=== PATIENT | female | born 1940 | race Caucasian/White ===

== ENCOUNTER 2017-07-05 10:35 | Inpatient (IN) | payer MEDICARE, OTHER ==
[~2017-07-05] VITALS: Ht 154.9 cm; Wt 61.2 kg
[~2017-07-05 10:35] MED LIST: AZIT250T6 PO; CARB-93 PO; DONE5TAB34 PO; ESCI10TA PO; GABA-534 PO; LEVE500T20 PO; LEVO88TA5 PO; MEGE400O PO; MEMA10TA PO; MIDO2.5T PO; OMEP40CA37 PO; POTA10CA43 PO; RISE35TA8 PO; RISP0.5T20 PO; ROPI1TAB4 PO; SIMV40TA5 PO
[2017-07-05] MEDS ORDERED: IV NORMAL SALINE 1000 ML BAG IV ONE ×2 (11:00→12:30)
[2017-07-05 11:20] LABS: BASOPHILS # (AUTO) 0.4 K/uL (0.0-8.0); BASOPHILS % (AUTO) 2.7 % (0.0-2.0); EOSINOPHILS # (AUTO) 0.1 K/uL (0.0-0.7); EOSINOPHILS % (AUTO) 0.8 % (0.0-7.0); HEMATOCRIT 44.6 % (37-47); HEMOGLOBIN 14.2 G/DL (12.0-16.0); LYMPHOCYTES # (AUTO) 1.5 K/UL (0.8-4.8); LYMPHOCYTES % (AUTO) 11.5 % (20.5-51.5); MEAN CORPUSCULAR HEMOGLOBIN 31.4 UUG (27.0-31.0); MEAN CORPUSCULAR HGB CONC 32 g/dL (32.0-37.0); MEAN CORPUSCULAR VOLUME 98.5 FL (81.0-99.0); MONOCYTES # (AUTO) 0.7 K/UL (0.1-1.30); NEUTROPHILS # (AUTO) 10.4 K/UL (1.8-8.9); PLATELET COUNT (AUTO) 404 K/UL (150-450); RED BLOOD CELL COUNT(AUTO) 4.53 MIL/UL (4.2-5.4); WHITE BLOOD COUNT (AUTO) 13.1 K/UL (4.0-11.2)
[2017-07-05 11:41] LABS: CARBON DIOXIDE 25 mmol/L (21-32); CHLORIDE 107 mmol/L (98-107); CREATININE 0.8 mg/dL (0.6-1.3); GLUCOSE 156 mg/dL (74-106); POTASSIUM 4.5 mmol/L (3.5-5.1); UREA NITROGEN, BLOOD 11 mg/dL (7-18)
[2017-07-05] MEDS ORDERED: PIPERACILLIN SODIUM/TAZOBACTAM 3.375 G in IV DEXTROSE 5% 50 ML IV ONE (11:45)
[2017-07-05 11:46] LABS: ALANINE AMINOTRANSFERASE 21 U/L (14-59); ALKALINE PHOSPHATASE 64 U/L (50-136); ASPARTATE AMINOTRANSFERASE 28 U/L (15-37); BILIRUBIN,DIRECT 0.1 mg/dL (0.0-0.2); BILIRUBIN,TOTAL 0.2 mg/dL (0.2-1.0); TOTAL PROTEIN, SERUM 7.3 g/dL (6.4-8.2)
[2017-07-05] MEDS ORDERED: CHOL100045 PO (11:58)
[2017-07-05] MEDS ORDERED: MULT-1094 PO (11:58)
[2017-07-05] MEDS ORDERED: RANI150C4 PO (11:58)
[2017-07-05] MEDS ORDERED: ASCO500C16 PO (11:58)
[2017-07-05] MEDS ORDERED: PERM60CR4 TP (11:58)
[2017-07-05] MEDS ORDERED: TRIA15CR2 TP (11:58)
[2017-07-05] MEDS ORDERED: CARBIDOPA/LEVODOPA PO (11:58)
[2017-07-05] MEDS ORDERED: CALC-860 PO (11:58)
[2017-07-05] MEDS ORDERED: IBUP-1957 PO (11:58)
[2017-07-05] MEDS ORDERED: CYAN10006 PO (11:58)
[2017-07-05] MEDS ORDERED: PIPERACILLIN/TAZOBACTAM/D5W 50 ML IV ONE (12:04)
[2017-07-05] MEDS ORDERED: AZITHROMYCIN IV 500 MG in IV DEXTROSE 5% 250 ML IV ONE (12:30)
[2017-07-05] MEDS ORDERED: CEFTRIAXONE 1 G in IV DEXTROSE 5% 50 ML IV ONE (12:30)
[2017-07-05] MEDS ORDERED: AZITHROMYCIN 500 MG VIAL IV ONE (13:01)
[2017-07-05] MEDS ORDERED: CEFTRIAXONE 1 G VIAL ONE (13:01)
[2017-07-05 13:21] LABS: *BILIRUBIN,URIN NEGATIVE (NEGATIVE); *BLOOD, URINE Trace-intact (NEGATIVE); *CLARITY,URINE CLOUDY (CLEAR); *COLOR,URINE YELLOW (YELLOW); *KETONES,URINE NEGATIVE (NEGATIVE); *PROTEIN,URINE NEGATIVE (NEGATIVE); *UROBILINOGEN,URINE 0.2 E.U./dl (NORMAL); LEUKOCYTE ESTERASE ,URINE 1+ (NEGATIVE); NITRITE, URINE NEGATIVE (NEGATIVE); PH,URINE 5.5 (5.0-8.0); UGLUCOSE NEGATIVE (NEGATIVE)
[2017-07-05 13:30] LABS: BACTERIA,URINE MODERATE /HPF (NONE SEEN); SQUAMOUS EPITHELIAL CELL,UR MANY /HPF (NONE SEEN)
--- NOTE | 2017-07-05 13:52 | NUR ---
transfer to floor pending on perineal hygiene being provided. pt resistant to care which makes it very difficult to do intervention on her.
--- NOTE | 2017-07-05 14:01 | NUR ---
pt transfered to floor in stable condition.
--- NOTE | 2017-07-05 14:41 | NUR ---
77 YEAR OLD FEMALE ADMITTED TO ROOM 209 FOR SEPSIS VIA GURNEY .PT IS CONFUSED DEMENTED,V/S ARE STABLE. MD CALLED FOR THE ADMISSION ORDERS.
[2017-07-05 14:42] VITALS: BP 117/71
[2017-07-05] MEDS ORDERED: SIMVASTATIN 40 MG TABLET PO SCH ×2 (14:45→21:00)
[2017-07-05] MEDS ORDERED: IBUPROFEN 800 MG TABLET PO PRN (14:45)
[2017-07-05] MEDS ORDERED: ONDANSETRON 4 MG/2 ML VIAL IV PRN (14:45)
[2017-07-05] MEDS ORDERED: Z GUARD REMEDY PASTE 57 GM TUBE TOP PRN (14:45)
[2017-07-05] MEDS ORDERED: MIDODRINE HCL 2.5 MG TABLET PO PRN (14:45)
[2017-07-05] MEDS ORDERED: PIPERACILLIN SODIUM/TAZOBACTAM 4.5 G in IV DEXTROSE 5% 50 ML IV SCH (14:45)
[2017-07-05] MEDS ORDERED: ACETAMINOPHEN 325 MG TABLET PO PRN (14:45)
[2017-07-05 15:25] VITALS: BP 113/58
[2017-07-05] MEDS: IV NS 1000 ML 1,000 ML IV PRN (15:40)
[2017-07-05] MEDS: LEVETIRACETAM 500 MG TABLET PO SCH (16:28)
[2017-07-05] MEDS: CYANOCOBALAMIN 1000 MCG/ML VIAL IM SCH (16:28)
[2017-07-05] MEDS: ESCITALOPRAM OXALATE 10 MG TABLET PO SCH (16:29)
[2017-07-05] MEDS: GABAPENTIN 300 MG CAPSULE PO SCH (16:29)
[2017-07-05] MEDS: LEVOTHYROXINE SODIUM 88 MCG TABLET PO SCH (16:29)
[2017-07-05] MEDS: DONEPEZIL 5 MG TABLET PO SCH ×2 (16:29→17:00)
[2017-07-05] MEDS: ropiniROLE 1 MG TABLET PO SCH ×2 (16:29→17:00)
[2017-07-05] MEDS: CARBIDOPA/LEVODOPA 25-100MG TABLET PO SCH ×2 (16:29→17:00)
[2017-07-05] MEDS: CALCIUM CARB/VITAMIN D 600-400 MG TABLET PO SCH (16:29)
[2017-07-05] MEDS ORDERED: PIPERACILLIN/TAZOBACTAM/D5W 2.25 G in PREMIXED 1 EACH IV SCH (16:30)
--- NOTE | 2017-07-05 16:43 | NUR ---
ZOCOR 40 MG PO NOT GIVEN AT 1445 ,ZOCOR IS DUE HS
[2017-07-05] MEDS: MEMANTINE HCL 10 MG TABLET PO SCH (17:00)
[2017-07-05] MEDS: PIPERACILLIN/TAZOBACTAM/D5W 2.25 G in PREMIXED 1 EACH IV SCH (17:54)
--- NOTE | 2017-07-05 19:26 | NUR ---
PHARMACY CLINICAL NOTES(VANCOMYCIN DOSING) S: 77 YO female admitted for sepsis; MD ordered Vancomycin O: BUN/SCR 11/0.8; WBC 13.1, TEMP 99.4 ; dosing wt 135 lbas, ht 155 cm A/P: Will dose Vancomycin 1 gm IVPB q24h ; estimated peak of 38.2 and trough 15.94; will order trough prior to 4th dose (not ordered in [facility]) and will adjust the dose accordingly if necessary; will continue to monitor
--- NOTE | 2017-07-05 19:45 | NUR ---
RECEIVED PATIENT IN BED, AWAKE, NO SOB NO CHEST PAIN, NO COUGHING NO CONGESTION NOTED, RENDERED [facility] FOR BOWEL AND BLADDER INCONTINENT, AFEBRILE CONT TO MONITOR.
[2017-07-05] MEDS: VANCOMYCIN IV 1 G in PREMIXED 0 EACH IV SCH (19:54)
[2017-07-05 20:00] VITALS: BP 108/62
[2017-07-05] MEDS: risperiDONE 0.5 MG TABLET PO SCH (20:18)
[2017-07-05] MEDS: TRIAMCINOLONE ACET 0.5% CREAM 15 GM TUBE TP SCH (22:46)
[2017-07-06] VITALS (7 sets, daily range): BP systolic 91–108; BP diastolic 48–61
[2017-07-06] MEDS: PIPERACILLIN/TAZOBACTAM/D5W 2.25 G in PREMIXED 1 EACH IV SCH ×2 (00:12→05:17)
--- NOTE | 2017-07-06 00:15 | NUR ---
bp improved 115/69,temp wnl,patient asleep,no distress. Addendum: 07/07/17 at 0248 by MIKA GARBER RN wrong times entry/disregard.
--- NOTE | 2017-07-06 04:44 | NUR ---
PATIENT SLEPT MOST OF THE NIGHT, NO SOB NO CHEST PAIN NOTED, TURN AND REPOSITION , NO COMPLAIN OF PAIN, KEPT CLEAN AND DRY, CONT TO MONITOR.
--- NOTE | 2017-07-06 05:11 | NUR ---
PATIENT RHYTHM IS SINUS RHYTHM NO SOB NO CHEST PAIN, KEPT CLEAN AND DRY.
[2017-07-06 06:49] LABS: BASOPHILS % (AUTO) 0.3 % (0.0-2.0); EOSINOPHILS # (AUTO) 0.1 K/uL (0.0-0.7); EOSINOPHILS % (AUTO) 2.2 % (0.0-7.0); HEMOGLOBIN 13.6 G/DL (12.0-16.0); LYMPHOCYTES # (AUTO) 1.6 K/UL (0.8-4.8); LYMPHOCYTES % (AUTO) 28.9 % (20.5-51.5); MEAN CORPUSCULAR HEMOGLOBIN 34.2 UUG (27.0-31.0); MEAN CORPUSCULAR HGB CONC 35 g/dL (32.0-37.0); MEAN CORPUSCULAR VOLUME 98.6 FL (81.0-99.0); MONOCYTES # (AUTO) 0.3 K/UL (0.1-1.30); MONOCYTES % (AUTO) 6.2 % (0.0-11.0); NEUTROPHILS # (AUTO) 3.5 K/UL (1.8-8.9); NEUTROPHILS % (AUTO) 62.4 % (38.5-71.5); PLATELET COUNT (AUTO) 372 K/UL (150-450)
[2017-07-06] MEDS ORDERED: PANTOPRAZOLE SODIUM 40 MG TABLET.DR PO SCH (07:00)
[2017-07-06 07:13] LABS: THYROID STIMULATING HORMONE 0.267 mIU/mL (0.358-3.740)
[2017-07-06 07:14] LABS: HEMATOCRIT 39.1 % (37-47); RED BLOOD CELL COUNT(AUTO) 3.97 MIL/UL (4.2-5.4); WHITE BLOOD COUNT (AUTO) 5.5 K/UL (4.0-11.2)
[2017-07-06 07:16] LABS: CARBON DIOXIDE 27 mmol/L (21-32); CHLORIDE 109 mmol/L (98-107); GLUCOSE 97 mg/dL (74-106); POTASSIUM 4.1 mmol/L (3.5-5.1); UREA NITROGEN, BLOOD 8 mg/dL (7-18)
[2017-07-06 07:38] LABS: ALANINE AMINOTRANSFERASE 46 U/L (14-59); ALKALINE PHOSPHATASE 62 U/L (50-136); ASPARTATE AMINOTRANSFERASE 23 U/L (15-37); BILIRUBIN,TOTAL 0.3 mg/dL (0.2-1.0); CHOLESTEROL 105 mg/dL (<200); HDL CHOLESTEROL 27 mg/dL (40-60); MAGNESIUM 1.9 mg/dL (1.8-2.4); PHOSPHOROUS 3.2 mg/dL (2.5-4.9); TOTAL PROTEIN, SERUM 6.5 g/dL (6.4-8.2); TRIGLYCERIDES 48 MG/DL (30-150)
--- NOTE | 2017-07-06 08:00 | NUR ---
awake forgetful confused but able to follow simple direction no sob or pain ON FALL /ASPIRATION PRECAUTION BED ALARM ON AND CALL BENITEZ IN REACH
[2017-07-06] MEDS: MEMANTINE HCL 10 MG TABLET PO SCH ×2 (08:27→16:16)
[2017-07-06] MEDS: POTASSIUM CHLORIDE 10 MEQ CAPSULE.SA PO SCH (08:28)
[2017-07-06] MEDS: LEVOTHYROXINE SODIUM 88 MCG TABLET PO SCH (08:29)
[2017-07-06] MEDS: CARBIDOPA/LEVODOPA 25-100MG TABLET PO SCH ×2 (08:29→16:14)
[2017-07-06] MEDS: ropiniROLE 1 MG TABLET PO SCH ×2 (08:29→16:16)
[2017-07-06] MEDS: DONEPEZIL 5 MG TABLET PO SCH ×2 (08:29→16:14)
[2017-07-06] MEDS: MULTIVIT, IRON, MIN NO. 8, FA TABLET PO SCH (08:30)
[2017-07-06] MEDS: LEVETIRACETAM 500 MG TABLET PO SCH ×2 (08:30→16:14)
[2017-07-06] MEDS: CHOLECALCIFEROL 1,000 UNIT TABLET PO SCH (08:30)
[2017-07-06] MEDS: ASCORBIC ACID 500 MG TABLET PO SCH (08:30)
[2017-07-06] MEDS: CALCIUM CARB/VITAMIN D 600-400 MG TABLET PO SCH (08:30)
[2017-07-06] MEDS: ESCITALOPRAM OXALATE 10 MG TABLET PO SCH (08:30)
[2017-07-06] MEDS: GABAPENTIN 300 MG CAPSULE PO SCH ×2 (08:30→16:14)
[2017-07-06] MEDS: TRIAMCINOLONE ACET 0.5% CREAM 15 GM TUBE TP SCH ×2 (08:31→20:15)
[2017-07-06] MEDS: CYANOCOBALAMIN 1000 MCG/ML VIAL IM SCH (08:32)
[2017-07-06] MEDS ORDERED: Medication Not On Formulary EA (Omeprazole 1 CAP) PO SCH (09:00)
--- NOTE | 2017-07-06 09:30 | NUR ---
DR GLASGOW WAS HERE PATIENT CONDITION INFORM ORDER DIET TO START
[2017-07-06] MEDS: PIPERACILLIN/TAZOBACTAM/D5W 50 ML IV SCH ×3 (11:49→23:34)
--- NOTE | 2017-07-06 12:30 | NUR ---
EAT LUNCH WELL NO SOB OR PAIN RESTING QUIET IN BED CLOSED OBSERVATION
--- NOTE | 2017-07-06 13:51 | NUR ---
Clinical Pharmacy Note: Vancomycin Pharmacy to Dose Subjective: Continue vancomycin for this 77 y/o female for spesis, r/o as pna Objective: height 155 cm weight 135 lb BUN 8 Scr 1.0 Wbc 5.5 temp 98.8 Assessment/Plan Will continue same dose of vanco 1gm IVPB q24hr for today. 2nd dose is due today at 1930. Plan to check vanco trough level before 4th dose (not yet ordered). Will monitor renal function & adjust the dose if needed. Will continue to monitor.
[2017-07-06] MEDS: IV NS 1000 ML 1,000 ML IV PRN (14:14)
--- NOTE | 2017-07-06 15:00 | NUR ---
VS TAKEN BP WAS LOW 91/48 PUT PATIENT ON TRENDELENBERG POSITION AND RECHECK BP AGAIN SEE FLOW SHEET VS
--- NOTE | 2017-07-06 16:00 | NUR ---
PO FLD ENC KANG WELL ON THICK LIQ ASPIRATION PRECAUTION VS TAKEN BP IMPROVING 97/56 RESTING WELL NO SOB OR PAIN
--- NOTE | 2017-07-06 17:00 | NUR ---
EAT DINNER WELL PO FLD KANG MOD AMT NO SOB OR PAIN CONTINUE IVF AND ANTIBIOTICS
--- NOTE | 2017-07-06 17:15 | NUR ---
CONDITION STABLE NO ACUTE DISTRESS ,PAIN UNDER CONTROL SAFETY MEASURE PROVIDED CALL LIGHT IN REACH AND BED ALARM ON CONTINUE IVF AND MONITORING VS BP PRN NEEDED
[2017-07-06] MEDS: VANCOMYCIN IV 1 G in PREMIXED 0 EACH IV SCH (18:52)
--- NOTE | 2017-07-06 20:00 | NUR ---
patient alert, lethargic, able to follow simple instruction,no sob noted,incontinence care,turn and reposition, aspiration and fall precautions,bed alarm on,no acute distress.NSR on monitor.
[2017-07-06] MEDS: LACTOBACILLUS RHAMNOSUS GG 1 EACH CAPSULE PO SCH (20:13)
[2017-07-06] MEDS: risperiDONE 0.5 MG TABLET PO SCH (20:15)
--- NOTE | 2017-07-06 21:00 | NUR ---
patient temp 99.3,sponge bath ,cooling measure given,encourage po intake.
[2017-07-07 00:15] VITALS: BP 115/69
--- NOTE | 2017-07-07 01:00 | NUR ---
patient asleep, afebrile,bp 115/69,continue monitor.
[2017-07-07 04:54] VITALS: BP 112/74
[2017-07-07] MEDS: IV NS 1000 ML 1,000 ML IV PRN ×2 (04:57→19:46)
[2017-07-07] MEDS: PIPERACILLIN/TAZOBACTAM/D5W 50 ML IV SCH ×2 (05:24→11:58)
--- NOTE | 2017-07-07 06:27 | NUR ---
patient slept well,no acute distress ,tele NSR ,bp stable.
[2017-07-07] MEDS: LEVOTHYROXINE SODIUM 50 MCG TABLET PO SCH (06:45)
[2017-07-07 06:55] LABS: BASOPHILS % (AUTO) 0.3 % (0.0-2.0); EOSINOPHILS # (AUTO) 0.1 K/uL (0.0-0.7); EOSINOPHILS % (AUTO) 1.7 % (0.0-7.0); HEMATOCRIT 40.3 % (31.2-41.9); HEMOGLOBIN 14.1 g/dL (10.9-14.3); LYMPHOCYTES # (AUTO) 1.6 K/uL (20.0-40.0); LYMPHOCYTES % (AUTO) 26.1 % (20.5-51.5); MEAN CORPUSCULAR HEMOGLOBIN 34.6 uug (24.7-32.8); MEAN CORPUSCULAR HGB CONC 35 g/dL (32.3-35.6); MEAN CORPUSCULAR VOLUME 98.5 fL (75.5-95.3); MONOCYTES # (AUTO) 0.4 K/uL (2.0-10.0); MONOCYTES % (AUTO) 6.7 % (0.0-11.0); NEUTROPHILS % (AUTO) 65.2 % (38.5-71.5); PLATELET COUNT (AUTO) 322 K/uL (179-408); RED BLOOD CELL COUNT(AUTO) 4.09 MIL/uL (3.63-4.92); WHITE BLOOD COUNT (AUTO) 6.1 K/uL (3.8-11.8)
[2017-07-07 08:04] LABS: ALANINE AMINOTRANSFERASE 42 U/L (14-59); ALKALINE PHOSPHATASE 60 U/L (50-136); ASPARTATE AMINOTRANSFERASE 21 U/L (15-37); BILIRUBIN,TOTAL 0.2 mg/dL (0.2-1.0); CARBON DIOXIDE 25 mmol/L (21-32); CHLORIDE 108 mmol/L (98-107); CREATININE 0.8 mg/dL (0.6-1.3); GLUCOSE 94 mg/dL (74-106); MAGNESIUM 1.8 mg/dL (1.8-2.4); PHOSPHOROUS 3.7 mg/dL (2.5-4.9); POTASSIUM 4.3 mmol/L (3.5-5.1); TOTAL PROTEIN, SERUM 6.6 g/dL (6.4-8.2)
[2017-07-07] MEDS: LACTOBACILLUS RHAMNOSUS GG 1 EACH CAPSULE PO SCH ×2 (08:55→20:49)
[2017-07-07] MEDS: CARBIDOPA/LEVODOPA 25-100MG TABLET PO SCH ×2 (08:55→16:22)
[2017-07-07] MEDS: POTASSIUM CHLORIDE 10 MEQ CAPSULE.SA PO SCH (08:55)
[2017-07-07] MEDS: LEVETIRACETAM 500 MG TABLET PO SCH ×2 (08:55→16:22)
[2017-07-07] MEDS: CALCIUM CARB/VITAMIN D 600-400 MG TABLET PO SCH (08:55)
[2017-07-07] MEDS: MEMANTINE HCL 10 MG TABLET PO SCH ×2 (08:56→16:22)
[2017-07-07] MEDS: DONEPEZIL 5 MG TABLET PO SCH ×2 (08:56→16:23)
[2017-07-07] MEDS: FAMOTIDINE 20 MG TABLET PO SCH (08:56)
[2017-07-07] MEDS: ropiniROLE 1 MG TABLET PO SCH ×2 (08:56→16:22)
[2017-07-07] MEDS: MULTIVIT, IRON, MIN NO. 8, FA TABLET PO SCH (08:56)
[2017-07-07] MEDS: ASCORBIC ACID 500 MG TABLET PO SCH (08:56)
[2017-07-07] MEDS: CHOLECALCIFEROL 1,000 UNIT TABLET PO SCH (08:56)
[2017-07-07] MEDS: ESCITALOPRAM OXALATE 10 MG TABLET PO SCH (08:56)
[2017-07-07] MEDS: CYANOCOBALAMIN 1000 MCG/ML VIAL IM SCH (08:56)
[2017-07-07] MEDS: GABAPENTIN 300 MG CAPSULE PO SCH ×2 (08:56→16:22)
[2017-07-07] MEDS: TRIAMCINOLONE ACET 0.5% CREAM 15 GM TUBE TP SCH ×2 (08:57→20:49)
[2017-07-07 09:06] LABS: UREA NITROGEN, BLOOD 9 mg/dL (7-18)
[2017-07-07 12:16] VITALS: BP 101/68
--- NOTE | 2017-07-07 15:14 | NUR ---
Clinical Pharmacy Note: Vancomycin Pharmacy to Dose Subjective: Continue vancomycin for this 77 y/o female for spesis, r/o as pna Objective: height 155 cm weight 135 lb BUN 9 Scr 0.8 Wbc 6.1 temp 98.9 Assessment/Plan Will continue same dose of vanco 1gm IVPB q24hr for today. 3rd dose today at 1930. Plan to check vanco trough level before 4th dose (due tomorrow at 1900). Will check level tomorrow and adjust as needed. Will continue to monitor.
[2017-07-07 16:44] VITALS: BP 114/66
--- NOTE | 2017-07-07 18:00 | NUR ---
SNR Pt is in noacute distress. PT was not able to tolerate PT today pt did not follow directions. Call light is within reach.
--- NOTE | 2017-07-07 19:30 | NUR ---
RECEIVED SHIFT REPORT FROM PREVIOUS SHIFT NURSE. PATIENT IN STABLE CONDITION, NO S/S OF DISTRESS. PATIENT IS CONFUSED, FLAT AFFECT. WILL REORIENT PATIENT. PATIENT IS SAFE. BED ALARM ON, BED IN LOCKED/LOW POSITION, CALL LIGHT WITHIN REACH OF PATIENT. SAFETY AND COMFORT WILL BE PROVIDED THROUGHOUT SHIFT.
[2017-07-07] MEDS: VANCOMYCIN IV 1 G in PREMIXED 0 EACH IV SCH (19:46)
--- NOTE | 2017-07-07 20:00 | NUR ---
BLOOD PRESSURE: 103/54. PATIENT IN STABLE CONDITION, NO S/S OF DISTRESS. WILL CONTINUE TO MONITOR PATIENT'S BP THROUGHOUT SHIFT.
[2017-07-07 20:31] VITALS: BP_SYST 103; BP_SYST 99; BP_DIAS 53; BP_DIAS 54
[2017-07-07] MEDS: risperiDONE 0.5 MG TABLET PO SCH (20:49)
--- NOTE | 2017-07-07 23:42 | NUR ---
BLOOD PRESSURE: 93/51. WILL GIVE MIDODRINE 2.5 MG PO.
[2017-07-07] MEDS ORDERED: PIPERACILLIN/TAZO 4.5 GM VIAL IV ONE (23:51)
[2017-07-07] MEDS: PIPERACILLIN SODIUM/TAZOBACTAM 4.5 G in IV DEXTROSE 5% 50 ML IV SCH (23:54)
[2017-07-08] VITALS (7 sets, daily range): BP systolic 90–134; BP diastolic 51–65
--- NOTE | 2017-07-08 00:30 | NUR ---
MIDODRINE WAS NOT ADMINISTERED TO PATIENT. BP: 103/54
[2017-07-08 06:05] LABS: BASOPHILS % (AUTO) 0.2 % (0.0-2.0); EOSINOPHILS # (AUTO) 0.2 K/uL (0.0-0.7); EOSINOPHILS % (AUTO) 3.2 % (0.0-7.0); HEMATOCRIT 41.1 % (37-47); HEMOGLOBIN 14.2 G/DL (12.0-16.0); LYMPHOCYTES # (AUTO) 1.7 K/UL (0.8-4.8); LYMPHOCYTES % (AUTO) 26.6 % (20.5-51.5); MEAN CORPUSCULAR HEMOGLOBIN 33.7 UUG (27.0-31.0); MEAN CORPUSCULAR HGB CONC 35 g/dL (32.0-37.0); MEAN CORPUSCULAR VOLUME 97.1 FL (81.0-99.0); MONOCYTES # (AUTO) 0.4 K/UL (0.1-1.30); MONOCYTES % (AUTO) 6.5 % (0.0-11.0); NEUTROPHILS # (AUTO) 4.1 K/UL (1.8-8.9); NEUTROPHILS % (AUTO) 63.5 % (38.5-71.5); PLATELET COUNT (AUTO) 385 K/UL (150-450); RED BLOOD CELL COUNT(AUTO) 4.23 MIL/UL (4.2-5.4); WHITE BLOOD COUNT (AUTO) 6.4 K/UL (4.0-11.2)
[2017-07-08 06:13] LABS: CARBON DIOXIDE 29 mmol/L (21-32); CHLORIDE 109 mmol/L (98-107); GLUCOSE 98 mg/dL (74-106); MAGNESIUM 1.9 mg/dL (1.8-2.4); PHOSPHOROUS 3.5 mg/dL (2.5-4.9); POTASSIUM 4.9 mmol/L (3.5-5.1); UREA NITROGEN, BLOOD 5 mg/dL (7-18)
--- NOTE | 2017-07-08 06:21 | NUR ---
PATIENT SLEPT THROUGH MOST OF THE NIGHT. IN STABLE CONDITION. BLOOD PRESSURE REMAINS IN THE HIGH 90S TO LOW 100S. MIDODRINE NOT GIVEN TO PATIENT. PATIENT IN STABLE CONDITION, NO S/S OF DISTRESS. BED IN LOCKED/LOW POSITION, CALL LIGHT WITHIN REACH. COMFORT AND SAFETY WAS PROVIDED THROUGHOUT SHIFT.
[2017-07-08] MEDS: PIPERACILLIN SODIUM/TAZOBACTAM 4.5 G in IV DEXTROSE 5% 50 ML IV SCH ×2 (07:25→13:50)
[2017-07-08] MEDS: LEVOTHYROXINE SODIUM 50 MCG TABLET PO SCH (07:29)
--- NOTE | 2017-07-08 07:30 | NUR ---
Awake, confused, oriented to name, responds verbally and follows command. IVF of NS at 75 ml/hr, infusing well.
--- NOTE | 2017-07-08 09:00 | NUR ---
Can not eat by herself. Assisted with meal, ate fairly and able to take medications whole.
[2017-07-08] MEDS: CYANOCOBALAMIN 1000 MCG/ML VIAL IM SCH (09:32)
[2017-07-08] MEDS: LEVETIRACETAM 500 MG TABLET PO SCH ×2 (09:33→17:07)
[2017-07-08] MEDS: POTASSIUM CHLORIDE 10 MEQ CAPSULE.SA PO SCH (09:33)
[2017-07-08] MEDS: LACTOBACILLUS RHAMNOSUS GG 1 EACH CAPSULE PO SCH ×2 (09:33→20:35)
[2017-07-08] MEDS: CALCIUM CARB/VITAMIN D 600-400 MG TABLET PO SCH (09:33)
[2017-07-08] MEDS: ESCITALOPRAM OXALATE 10 MG TABLET PO SCH (09:33)
[2017-07-08] MEDS: MEMANTINE HCL 10 MG TABLET PO SCH ×2 (09:34→17:07)
[2017-07-08] MEDS: GABAPENTIN 300 MG CAPSULE PO SCH ×2 (09:34→17:08)
[2017-07-08] MEDS: FAMOTIDINE 20 MG TABLET PO SCH (09:34)
[2017-07-08] MEDS: ASCORBIC ACID 500 MG TABLET PO SCH (09:34)
[2017-07-08] MEDS: CHOLECALCIFEROL 1,000 UNIT TABLET PO SCH (09:34)
[2017-07-08] MEDS: MULTIVIT, IRON, MIN NO. 8, FA TABLET PO SCH (09:34)
[2017-07-08] MEDS: DONEPEZIL 5 MG TABLET PO SCH ×2 (09:34→17:07)
[2017-07-08] MEDS: ropiniROLE 1 MG TABLET PO SCH ×2 (09:34→17:08)
[2017-07-08] MEDS: CARBIDOPA/LEVODOPA 25-100MG TABLET PO SCH ×2 (09:34→17:08)
[2017-07-08] MEDS: TRIAMCINOLONE ACET 0.5% CREAM 15 GM TUBE TP SCH ×2 (09:35→21:50)
[2017-07-08] MEDS: IV NS 1000 ML 1,000 ML IV PRN (13:51)
--- NOTE | 2017-07-08 14:00 | NUR ---
Repositioned at interval.
--- NOTE | 2017-07-08 15:01 | NUR ---
Clinical Pharmacy Note: Vancomycin Pharmacy to Dose Subjective: Continue vancomycin for this 77 y/o female for spesis, r/o as pna Objective: height 155 cm weight 135 lb BUN 5 Scr 1.0 Wbc 6.4 temp 98.6 Assessment/Plan Will continue same dose of vanco 1gm IVPB q24hr for today. 3rd dose yesterday at 1930. Plan to check vanco trough level before 4th dose (due today at 1900). Will check level today and adjust as needed. Will continue to monitor.
--- NOTE | 2017-07-08 18:18 | NUR ---
Ate fairly. Incontinence care done. Repositioned comfortably
--- NOTE | 2017-07-08 19:30 | NUR ---
RECEIVED SHIFT REPORT FROM PREVIOUS SHIFT NURSE. PATIENT IN STABLE CONDITION, NO S/S OF DISTRESS. BED IN LOCKED/LOW POSITION WITH SIDE RAILS UP X2, BED ALARM ON. SAFETY AND COMFORT WILL BE PROVIDED THROUGHOUT SHIFT.
[2017-07-08] MEDS ORDERED: CEFTRIAXONE 1 G in IV DEXTROSE 5% 50 ML IV SCH (19:45)
[2017-07-08] MEDS: risperiDONE 0.5 MG TABLET PO SCH (20:35)
[2017-07-09 04:00] VITALS: BP 94/54
[2017-07-09] MEDS: IV NS 1000 ML 1,000 ML IV PRN (05:23)
[2017-07-09] MEDS: LEVOTHYROXINE SODIUM 50 MCG TABLET PO SCH (06:20)
--- NOTE | 2017-07-09 06:45 | NUR ---
PATIENT SLEPT WELL THROUGHOUT THE NIGHT. NO S/S OF DISTRESS, STABLE CONDITION. SAFETY AND COMFORT PROVIDED THROUGHOUT SHIFT.
--- NOTE | 2017-07-09 07:30 | NUR ---
Awake, confused, calm cooperative with care. IVF infusing.
[2017-07-09] MEDS: LACTOBACILLUS RHAMNOSUS GG 1 EACH CAPSULE PO SCH (08:29)
[2017-07-09] MEDS: CALCIUM CARB/VITAMIN D 600-400 MG TABLET PO SCH (08:29)
[2017-07-09] MEDS: DONEPEZIL 5 MG TABLET PO SCH (08:29)
[2017-07-09] MEDS: ESCITALOPRAM OXALATE 10 MG TABLET PO SCH (08:29)
[2017-07-09] MEDS: CYANOCOBALAMIN 1000 MCG/ML VIAL IM SCH (08:29)
[2017-07-09] MEDS: FAMOTIDINE 20 MG TABLET PO SCH (08:30)
[2017-07-09] MEDS: MEMANTINE HCL 10 MG TABLET PO SCH (08:30)
[2017-07-09] MEDS: GABAPENTIN 300 MG CAPSULE PO SCH (08:30)
[2017-07-09] MEDS: ropiniROLE 1 MG TABLET PO SCH (08:30)
[2017-07-09] MEDS: LEVETIRACETAM 500 MG TABLET PO SCH (08:30)
[2017-07-09] MEDS: POTASSIUM CHLORIDE 10 MEQ CAPSULE.SA PO SCH (08:30)
[2017-07-09] MEDS: MULTIVIT, IRON, MIN NO. 8, FA TABLET PO SCH (08:31)
[2017-07-09] MEDS: CARBIDOPA/LEVODOPA 25-100MG TABLET PO SCH (08:31)
[2017-07-09] MEDS: ASCORBIC ACID 500 MG TABLET PO SCH (08:31)
[2017-07-09] MEDS: CHOLECALCIFEROL 1,000 UNIT TABLET PO SCH (08:31)
[2017-07-09] MEDS: TRIAMCINOLONE ACET 0.5% CREAM 15 GM TUBE TP SCH (08:32)
[2017-07-09 11:38] VITALS: BP 111/59
--- NOTE | 2017-07-09 12:30 | NUR ---
Assisted with meal, ate fairly
[2017-07-09 15:29] VITALS: BP 92/55
[2017-07-09] MEDS ORDERED: INFLUENZA VACCINE 2017-2018 0.5 ML DISP.SYRIN IM ONE (16:15)
--- NOTE | 2017-07-09 16:43 | NUR ---
With discharge order to SN[facility]. Report given to Kierra. Saline lock intact to left hand. Discharged by gurney/ambulance in fair condition, not in distress, afebrile.
[2017-07-12] MEDS ORDERED: RISEDRONATE SODIUM PO SCH (06:00)
== END 2017-07-09 17:00 | DRG 871 ==
LOC: ER 10:35 → TELE 13:34 → MED 07-08 03:34
PROVIDERS: ADMIT Internal Medicine; ATTEND Internal Medicine
DX: A41.9 Sepsis, unspecified organism (principal); J69.0 Pneumonitis due to inhalation of food and vomit; E43 Unspecified severe protein-calorie malnutrition; G93.41 Metabolic encephalopathy; E87.2 Acidosis; R13.10 Dysphagia, unspecified; D68.59 Other primary thrombophilia; N39.0 Urinary tract infection, site not specified; G20 Parkinson's disease; G30.9 Alzheimer's disease, unspecified; F02.80 Dementia in other diseases classified elsewhere, unspecified severity, without behavioral disturbance, psychotic disturbance, mood disturbance, and anxiety; G40.909 Epilepsy, unspecified, not intractable, without status epilepticus; Z74.09 Other reduced mobility; E03.9 Hypothyroidism, unspecified; B96.20 Unspecified Escherichia coli [E. coli] as the cause of diseases classified elsewhere; R62.7 Adult failure to thrive; R91.8 Other nonspecific abnormal finding of lung field; E78.5 Hyperlipidemia, unspecified; Z68.25 Body mass index [BMI] 25.0-25.9, adult; F41.9 Anxiety disorder, unspecified; M81.0 Age-related osteoporosis without current pathological fracture; Z79.899 Other long term (current) drug therapy; K21.9 Gastro-esophageal reflux disease without esophagitis; K44.9 Diaphragmatic hernia without obstruction or gangrene; I10 Essential (primary) hypertension; F32.9 Major depressive disorder, single episode, unspecified; I70.0 Atherosclerosis of aorta
CPT/HCPCS: 36415; 70030-TC; 71010; 83605; 83735; 84100; 84443; 85025; 85730; 87040; 87077; 87086; 90686; 92610; 93005; 97110; 97530; A4663; C1758; J0456; J0696; J2543; J3370; J3420; J7030; J7040; J7050; J7060